=== PATIENT | female | born 1960 | race Caucasian/White ===

== ENCOUNTER 2021-11-11 09:10 | Emergency (ER) | payer BC ==
[~2021-11-11] VITALS: Ht 157.5 cm; Wt 78.0 kg
[2021-11-11 09:10] VITALS: BP_SYST 144
--- NOTE | 2021-11-11 09:18 | NUR ---
TRIAGED IN TRIAGE ROOM, BROUGHT BACK TO BED #5 AND REPORT GIVEN TO ANDRESSA
--- NOTE | 2021-11-11 09:19 | NUR ---
Patient c/o RLQ pain x 3 weeks, patient reports dull constant pain, 5/10. Denies any N/V/D.
--- NOTE | 2021-11-11 09:25 | NUR ---
Urine sample collected and brought to lab
[2021-11-11 09:49] LABS: BILIRUBIN,URINE NEGATIVE (NEGATIVE); BLOOD, URINE NEGATIVE (NEGATIVE); CLARITY/URINE SL CLOUDY (CLEAR); COLOR,URINE YELLOW (YELLOW); GLUCOSE,URINE NEGATIVE (NEGATIVE); KETONES,URINE NEGATIVE (NEGATIVE); LEUKOCYTE ESTERASE ,URINE NEGATIVE (NEGATIVE); NITRITE, URINE NEGATIVE (NEGATIVE); PH,URINE 5.5 (5.0-8.0); PROTEIN URINE TRACE (NEGATIVE); UROBILINOGEN,URINE 0.2 (0.2-1.0)
--- NOTE | 2021-11-11 09:58 | NUR ---
Patient taken to CT machine by tech via W/C
[2021-11-11] MEDS: KETOROLAC TROMETHAMINE 60 MG/2 ML VIAL IM ONE (10:08)
--- NOTE | 2021-11-11 10:08 | NUR ---
Patient medicated per order
[2021-11-11 10:10] LABS: BASOPHILS # (AUTO) 0.1 K/uL (0.0-0.2); BASOPHILS % (AUTO) 1.1 % (0.0-2.0); EOSINOPHILS # (AUTO) 0.2 K/uL (0.0-0.4); EOSINOPHILS % (AUTO) 3.3 % (0.0-4.0); HEMATOCRIT 41.2 % (36-48); HEMOGLOBIN 13.6 g/dL (12.0-16.0); LYMPHOCYTES # (AUTO) 1.9 K/uL (1.0-5.5); MEAN CORPUSCULAR HEMOGLOBIN 30 pg (27-31); MEAN CORPUSCULAR HGB CONC 33 % (32-36); MEAN CORPUSCULAR VOLUME 90 fL (79.0-98.0); MONOCYTES # (AUTO) 0.5 K/uL (0.0-1.0); MONOCYTES % (AUTO) 9.9 % (1.7-9.3); NEUTROPHILS # (AUTO) 2.4 K/uL (1.8-7.7); NEUTROPHILS % (AUTO) 47.7 % (40.0-70.0); PLATELET COUNT (AUTO) 285 K/uL (130-430); RED BLOOD CELL COUNT(AUTO) 4.59 MIL/uL (4.2-6.2); RED CELL DISTRIBUTION WIDTH 13.8 % (9.0-15.0)
[2021-11-11 10:24] LABS: CALCIUM 8.7 mg/dL (8.4-11.0); CREATININE 0.57 mg/dL (0.55-1.30); POTASSIUM 3.9 mmol/L (3.5-5.1)
[2021-11-11 10:28] LABS: ALBUMIN 3.8 g/dL (3.4-4.8); TOTAL BILIRUBIN 0.9 mg/dL (0.0-1.0)
--- NOTE | 2021-11-11 10:57 | NUR ---
RECEIVED REPORT AND WILL ASSUME CARE.
--- NOTE | 2021-11-11 11:56 | NUR ---
DR DRAKE IN ROOM SPEAKING WITH PT REGARDING CONTRAST WITH IV DYE. CONSENT SIGNED AND EXPLAINED TO PT. HEPLOCK BEING PLACED.
--- NOTE | 2021-11-11 12:02 | NUR ---
IVF STARTED PER ORDERS
[2021-11-11] MEDS: NACL 0.9% 1,000 ML IV ONE (12:06)
--- NOTE | 2021-11-11 12:46 | NUR ---
TAKEN TO RADIOLOGY VIA WHEELCHAIR
--- NOTE | 2021-11-11 13:03 | NUR ---
RETURNED FROM RADIOLOGY, PLACED BACK TO BED AND PT IS RESTING. IVF INFUSING
--- NOTE | 2021-11-11 13:28 | NUR ---
DR SHAW AT BEDSIDE SPEAKING WITH PT REGARDING TEST RESULTS. PT STATES SHE UNDERSTANDS
[2021-11-11 14:00] VITALS: BP_SYST 128
--- NOTE | 2021-11-11 14:01 | NUR ---
Patient given written and verbal discharge instructions and verbalizes understanding. ER MD discussed with patient the results and treatment provided. Patient in stable condition. ID arm band removed. IV catheter removed intact and dressing applied, no active bleeding. Rx of NONE given. Patient educated on pain management and to follow up with PMD. Pain Scale 0/10. Opportunity for questions provided and answered. Medication side effect fact sheet provided. PT GIVEN ALL LABS AND DISC FROM RADIOLOGY BY DR SHAW.
== END 2021-11-11 14:01 | disposition home or self-care (01) ==
LOC: SED 09:10
DX: R10.31 Right lower quadrant pain (principal); Z90.49 Acquired absence of other specified parts of digestive tract; Z88.5 Allergy status to narcotic agent; Z88.8 Allergy status to other drugs, medicaments and biological substances
CPT/HCPCS: 36415; 74176; 74177; 76376; 80053; 81003; 83690; 85025; 96360; 96372; 99285; J1885; J7030; Q9967; 99284